=== PATIENT | male | born 1990 | race Caucasian/White ===

== ENCOUNTER 2017-04-07 13:22 | Emergency (ER) | payer MEDICAID ==
[2017-04-07 16:30] VITALS: BP 137/50
== END 2017-04-07 16:30 | disposition home or self-care (01) ==
LOC: ED 13:22
DX: J20.9 Acute bronchitis, unspecified (principal); F17.210 Nicotine dependence, cigarettes, uncomplicated; Z90.49 Acquired absence of other specified parts of digestive tract
CPT/HCPCS: Q0092

== ENCOUNTER 2017-12-17 18:26 | Emergency (ER) | payer OTHER ==
[~2017-12-17] VITALS: Ht 170.2 cm; Wt 104.3 kg
[2017-12-17 18:31] VITALS: Ht 170.2 cm; Wt 104.3 kg
[2017-12-17 22:46] VITALS: BP 133/70
== END 2017-12-17 22:46 | disposition home or self-care (01) ==
LOC: ED 18:26
DX: J98.01 Acute bronchospasm (principal); F17.210 Nicotine dependence, cigarettes, uncomplicated; Z90.89 Acquired absence of other organs
CPT/HCPCS: 87804; J1200; J2930